=== PATIENT | female | born 1970 | race Caucasian/White ===

== ENCOUNTER → 2021-02-18 | Outpatient (CLI) | payer OTHER ==
[~2021-02-18] MED LIST: CALCIUM500 MG PO; CLARITIN10 MG PO; DEXILANT60 M1 PO; DIFLUCAN150 MG PO; FLEXERIL10 MG PO; IBU-8800 MG PO; LOMOTIL 0.025 M1 TA1 PO; MEDROL DOSEPAK4 MG PO; MOTRIN800 MG PO; MUCINEX DM 30/61 TAB PO; MULTI VITAMINS1 TAB PO; MULTIVITAMIN PO; PREVACID30 MG PO; PROZAC40 MG PO; ULTRAM50 MG PO; VIBRAMYCIN100 MG PO; VICODIN 5/500 505 MG PO; VITAMIN D5000 IU PO; ZOFRAN ODT4 MG SL; Zofran4 MG PO
== END | disposition home or self-care (01) ==
LOC: MAMMO 14:12
PROVIDERS: ATTEND Nurse Practitioner Women's Health
DX: Z12.31 Encounter for screening mammogram for malignant neoplasm of breast (principal)